=== PATIENT | female | born 1965 | race Caucasian/White ===

== ENCOUNTER → 2019-05-05 | Emergency (ER) | payer OTHER ==
[~2019-05-05] VITALS: Ht 154.9 cm; Wt 49.9 kg
[~2019-05-05] MED LIST: GENTAMICIN OPH3.5 G1 OPHTHALMIC
[2019-05-05 12:08] VITALS: BP 103/73
== END ==
LOC: M.ERS 10:39
DX: Z77.098 Contact with and (suspected) exposure to other hazardous, chiefly nonmedicinal, chemicals (principal); F17.200 Nicotine dependence, unspecified, uncomplicated